=== PATIENT | male | born 1995 | race Caucasian/White ===

== ENCOUNTER → 2018-12-04 | Outpatient (CLI) | payer OTHER ==
[~2018-12-04] VITALS: Ht 172.7 cm; Wt 89.8 kg
[~2018-12-04] MED LIST: DIPH-121 PO; PSEU120T9 PO; SINCALIDE 1.8 MCG in IV NORMAL SALINE 50ML 30 ML IV ONE
--- NOTE | 2018-12-04 12:26 | RAD ---
HEPATOBILIARY SCAN WITH EJECTION FRACTION 12/04/2018 12:22 PM History: Right upper quadrant colicky pain Procedure: Serial static images are obtained of the liver and biliary system in the frontal projection following IV administration of 5.5 mCi of Technetium 99m Choletec. After filling of the gallbladder, 1.8 mcg of sincalide were infused over 30 minutes and dynamic imaging continued over this period. The gallbladder ejection fraction was calculated. Findings: There is prompt hepatic clearance of tracer from the blood pool. There is homogeneous distribution throughout the liver. The gallbladder ejection fraction measures 95 % (normal gallbladder EF is 35% or greater). IMPRESSION: 1. The cystic duct and common bile duct are patent. Negative for acute cholecystitis. 2. The gallbladder ejection fraction is normal Electronically signed by: Nitish Gama MD (12/04/2018 12:24 PM) [id number]
== END | disposition home or self-care (01) ==
LOC: NM 07:55
PROVIDERS: ATTEND Family Medicine
DX: R10.11 Right upper quadrant pain (principal)
CPT/HCPCS: 78227; A9537; J2805

== ENCOUNTER 2018-12-15 12:29 | Inpatient (IN) | payer OTHER ==
[~2018-12-15] VITALS: Ht 174 cm; Wt 88.2 kg
[~2018-12-15 12:29] MED LIST changes: -SINCALIDE 1.8 MCG in IV NORMAL SALINE 50ML 30 ML IV ONE
[2018-12-15 13:30] VITALS: BP 125/78
[2018-12-15] MEDS ORDERED: IV NORMAL SALINE 1000ML BAG 1,000 ML IV ONE (14:00)
[2018-12-15] MEDS ORDERED: IOHEXOL 240 MG/ML 50ML VIAL. PO ONE (14:45)
[2018-12-15] MEDS ORDERED: CONTRAST GIVEN. MC PRN (14:45)
[2018-12-15] MEDS ORDERED: IOHEXOL 300 MG/ML 100ML VIAL. IV ONE (14:45)
[2018-12-15] MEDS: KETOROLAC 30 MG/ML VIAL. IV PRN (14:46)
[2018-12-15] MEDS: ONDANSETRON PF 4 MG/2 ML VIAL. IV PRN (14:51)
[2018-12-15 15:00] VITALS: BP 120/79
[2018-12-15] MEDS: IV NORMAL SALINE 1000ML BAG 1,000 ML IV SCH (15:40)
[2018-12-15 15:41] LABS: BASO % 1 % (0-3); EOS % 1 % (0-3); HEMATOCRIT 41.2 % (39.0-53.0); HEMOGLOBIN 14.1 g/dL (13.0-17.5); LYMPH # 1.5 x10^3/uL (1.0-4.8); LYMPH % 24 % (24-48); MEAN CORPUSCULAR HEMOGLOBIN 31 pg (25-35); MEAN CORPUSCULAR HGB CONC 34 g/dL (31-37); MEAN CORPUSCULAR VOLUME 89 fL (79-100); MONO # 0.5 x10^3/uL (0.0-1.1); MONO % 8 % (0-9); NEUT % 67 % (31-73); PLATELET COUNT 232 x10^3/uL (140-400); RED BLOOD COUNT 4.61 x10^6/uL (4.30-5.70); RED CELL DISTRIBUTION WIDTH 13.2 % (11.5-14.5); WHITE BLOOD COUNT 5.9 x10^3/uL (4.0-11.0)
--- NOTE | 2018-12-15 15:54 | PDOC2 ---
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 Hall. 2 months of RUQ ("but really everywhere") pain (cramping), early satiety, and nausea. Tried acid-reducers (omeprazole x 1 month, then pantoprazole x 2 weeks) - might have helped at first but then not really. Also tried anti-anxiety med (Zoloft) and a different BP med - no help. Worse with spicy foods but fairly constant. Sometimes radiates to chest and back. [facility] [place] - reportedly normal. Also normal PIPIDA (GB EF 95%) earlier this month. Worse since Saturday w/ vomiting ("acid") - can't keep anything down. Also had diarrhea on Saturday but resolved after Imodium. Has lost 8.5 pounds in 2 weeks. No hematemesis, hematochezia, melena, dysphagia, chronic diarrhea, or constipation. Saw a GI doctor ~8 years ago for cramping - had CTs and was told to take fiber which he has continued. No previous EGD or colonoscopy. No liver, pancreas, or PUD history. PRN NSAID use. Girlfriend Mac present. PMH: PMH: HTN, anxiety, seasonal allergies, wrist fracture, ?IBS appendectomy, tonsillectomy, eye surgeries FH: Family History: No pertinent hx (no IBD history), Other (grandmother - GB disease) Social History: Smoke: No ALCOHOL: other (used to drink a couple beers w/ dinner during the week, then 8- 9 beers on weekend nights; now does not drink during the week and only drinks on weekends) Drugs: None ROS: GEN: Denies fevers, chills, sweats HEENT: Denies blurred vision, sore throat CV: Denies chest pain RESP: Denies shortness of air, cough GI: Per HPI : Denies hematuria, dysuria ENDO: +weight loss NEURO: Denies confusion, dizziness MSK: Denies weakness, joint pain/swelling SKIN: Denies jaundice, pruritus Vitals: Vitals: Please see EMR. Labs: Labs: Ordered per [facility]. Allergies: Coded Allergies: azithromycin (Verified Allergy, Unknown, 12/04/18) Medications: Current Medications Medications (Trade) Dose Ordered Sig/Nevaeh Route PRN Reason Start Time Stop Time Status Last Admin Dose Admin Sodium Chloride 1,000 ml @ 1,000 mls/hr 1X ONCE IV 12/15/18 14:00 12/15/18 14:59 DC 12/15/18 14:54 Ketorolac Tromethamine (Toradol 30mg Vial) 30 mg PRN Q6HRS PRN IV PAIN 12/15/18 14:00 12/20/18 13:59 12/15/18 14:54 Ondansetron HCl (Zofran) 4 mg PRN Q6HRS PRN IV NAUSEA/VOMITING 12/15/18 14:00 12/15/18 14:54 PE: GEN: NAD HEENT: Atraumatic, PERRL LUNGS: CTAB HEART: RRR ABD: NABS, S/ND - currently non-tender EXTREMITY: No edema SKIN: No rashes, no jaundice NEURO/PSYCH: A & O �3 A/P: A/P: Abd pain (mostly RUQ), n/v, early satiety, weight loss Diarrhea x 1 - resolved CRC screen - average risk -- Await pending labs and CT. Reviewed w/ Dr. Campbell - will tentatively plan for EGD tomorrow at 4:00 p.m. IV PPI for now. ISABELLA KRUSE Dec 15, 2018 15:54
[2018-12-15 16:00] LABS: ALBUMIN 3.6 g/dL (3.4-5.0); ALBUMIN/GLOBULIN RATIO 1.1 (1.0-1.7); CALCIUM 8.6 mg/dL (8.5-10.1); CREATININE 1.2 mg/dL (0.7-1.3); GFR 73.8; POTASSIUM 3.5 mmol/L (3.5-5.1); TOTAL BILIRUBIN 0.8 mg/dL (0.2-1.0); TOTAL PROTEIN 6.8 g/dL (6.4-8.2)
--- NOTE | 2018-12-15 16:04 | PDOC1 ---
H & P. HPI: Mr. Sorenson is a 23 year old male with PMH of HTN and anxiety who presented to clinic today for chronic abdominal pain that has worsened over the last few weeks. He was feeling better over the weekend and had BBQ for dinner on Saturday, then has had innumerable episodes of vomiting since yesterday morning. He has not been able to keep fluids down. He describes abdominal pain as persistent, diffuse, achy, associated with nausea, vomiting, bloating, early satiety. Denies diarrhea, hematochezia, and melena. Aggravated by any PO intake. Denies known alleviating factors. PPI hasn't been helpful. He has had an abdominal US and HIDA scan which were both unrevealing apart from fatty liver and borderline hepatosplenomegaly. He went to [facility] over the weekend and had no relief from Zofran. He has an outpt consult with GI scheduled already but not until 12/25 and pt�s symptoms have been worsening. ROS: Gen: Denies fever, chills, night sweats HEENT: Denies congestion, ear pain, sore throat Resp: Denies cough, shortness of breath Chest: Denies chest pain, syncope Abd: Admits nausea, vomiting, abdominal pain, bloating, early satiety; denies diarrhea, hematochezia and melena Skin: Denies rash Psych: Admits anxiety PMH: as above FAMILY HX: Noncontributory SOCIAL HX: Denies illicit drug use including MJ. Denies smoking, recent alcohol use. SURGICAL HX: s/p appendectomy, tonsillectomy, eye surgery MEDS: Reviewed and reconciled ALLERGIES: Reviewed PE: Alert, oriented, appears unwell RRR CTAB Abd soft, mildly tender throughout, BS diminished, no organomegaly appreciated, neg taylor's No edema Calm, cooperative ASSESSMENT & PLAN: Intractable nausea, vomiting and diffuse abdominal pain - unknown etiology HTN Anxiety Borderline hepatosplenomegaly per recent US, was reportedly similar in size to previous CT in 2010 NPO for now Await labs, CT Abd/pelvis, GI consult Can advance to clears pending the above Zofran or Phenergan for nausea PRN Toradol for pain PRN IV fluid bolus then 125mls/hour HUGO ESPOSITO MD Dec 15, 2018 16:04
[2018-12-15] MEDS: PANTOPRAZOLE IV PUSH 40 MG VIAL. IVP SCH (16:49)
--- NOTE | 2018-12-15 16:56 | RAD ---
Examination: CT ABD PELV W/ORAL IV CONTRAST History: Intractable nausea and vomiting. Abdominal pain Comparison/Correlation: 11/25/2014 CT abdomen and pelvis with contrast Findings: Axial images of the abdomen and pelvis were obtained following IV and oral contrast. Sagittal and coronal reformatted images were provided. Visualized lung bases are clear. Liver, spleen, pancreas, adrenal glands, and kidneys are normal. Gallbladder fossa is unremarkable. Appendix is unremarkable. Surgical clips are present anterior to the right psoas muscle within the pelvis. Nonenlarged mesenteric lymph nodes involving the abdomen and pelvis are present. There is no bowel obstruction or extraluminal gas. No inflammatory findings along the bowel. Small umbilical hernia contains omental fat. Urinary bladder is unremarkable. No ascites or pelvic free fluid. Bony structures are grossly unremarkable. Impression: No suspicious process. PQRS Compliance Statement: One or more of the following individualized dose reduction techniques were utilized for this examination: 1. Automated exposure control 2. Adjustment of the mA and/or kV according to patient size 3. Use of iterative reconstruction technique Electronically signed by: Oneal Duarte MD (12/15/2018 4:53 PM) [facility]
[2018-12-15 17:04] LABS: BILIRUBIN,URINE NEGATIVE (NEG); CLARITY,URINE CLEAR; COLOR,URINE YELLOW; NITRITE,URINE NEGATIVE (NEG); PROTEIN,URINE NEGATIVE (NEG-TRACE)
[2018-12-15 17:12] LABS: BACTERIA,URINE 0 /HPF (0-FEW); RBC,URINE 0 /HPF (0-2); SQUAMOUS EPITHELIAL CELL,UR FEW /LPF; WBC,URINE 0 /HPF (0-4)
[2018-12-15] MEDS ORDERED: LOSA-73 PO (17:53)
[2018-12-15] MEDS ORDERED: SERT50TA PO (17:53)
[2018-12-15] MEDS ORDERED: PANT40TA77 PO (17:53)
[2018-12-15] MEDS ORDERED: LORA10TA68 PO (17:53)
[2018-12-15 19:00] VITALS: BP 136/96
[2018-12-15] MEDS: PSEUDOEPHEDRINE ER 120 MG TABLET.ER. PO PRN (22:25)
[2018-12-15] MEDS: CETIRIZINE HCL 10 MG TABLET. PO SCH (22:25)
[2018-12-15] MEDS: LOSARTAN POTASSIUM 50 MG TABLET. PO SCH (22:25)
[2018-12-15] MEDS: SERTRALINE 50 MG TABLET. PO SCH (22:25)
[2018-12-15 23:00] VITALS: BP 143/84
[2018-12-16] VITALS (13 sets, daily range): BP systolic 100–136; BP diastolic 53–90
[2018-12-16] MEDS: IV NORMAL SALINE 1000ML BAG 1,000 ML IV SCH ×4 (00:15→21:53)
[2018-12-16 05:32] LABS: ALBUMIN 3.2 g/dL (3.4-5.0); ALBUMIN/GLOBULIN RATIO 1.1 (1.0-1.7); CALCIUM 8.5 mg/dL (8.5-10.1); CREATININE 0.9 mg/dL (0.7-1.3); GFR 102.8; POTASSIUM 3.8 mmol/L (3.5-5.1); TOTAL BILIRUBIN 0.7 mg/dL (0.2-1.0); TOTAL PROTEIN 6.2 g/dL (6.4-8.2)
[2018-12-16] MEDS: ONDANSETRON PF 4 MG/2 ML VIAL. IV PRN (06:35)
[2018-12-16] MEDS: PANTOPRAZOLE 40 MG TABLET.DR. PO SCH (07:30)
[2018-12-16] MEDS: PANTOPRAZOLE IV PUSH 40 MG VIAL. IVP SCH (07:42)
--- NOTE | 2018-12-16 08:06 | PDOC ---
SUBJECTIVE Subjective Nausea is better with adding compazine. Abd pain is 3/10 right now, generalized, achy. No other changes OBJECTIVE Objective Reviewed. Vital Signs Vital Signs Date Time Temp Pulse Resp B/P (MAP) Pulse Ox O2 Delivery O2 Flow Rate FiO2 12/16/18 07:00 97.8 63 18 108/63 (78) 98 Room Air 97.8 12/16/18 03:00 97.5 60 18 131/85 (100) 98 Room Air 97.5 12/15/18 23:00 97.9 81 18 143/84 (103) 99 Room Air 97.9 12/15/18 22:27 88 136/96 12/15/18 19:00 97.6 88 18 136/96 (109) 98 Room Air 97.6 12/15/18 15:00 98.0 58 18 120/79 (93) 99 Room Air 98.0 12/15/18 14:00 Room Air 12/15/18 13:30 98.4 54 18 125/78 (94) 96 Room Air 98.4 I & O Intake and Output 12/16/18 06:59 Intake Total 0 ml Balance 0 ml Intake Oral 0 ml # Voids 3 # Bowel Movements 1 PHYSICAL EXAM Physical Exam Alert, oriented, appears unwell RRR CTAB Abd soft, mildly tender throughout, BS diminished, no organomegaly appreciated, neg taylor's No edema Calm, cooperative ASSESSMENT/PLAN Assessment/Plan Intractable nausea, vomiting and diffuse abdominal pain - unknown etiology HTN Anxiety Labs/imaging largely unrevealing NPO for EGD this PM COMMENT Lab Laboratory Tests Test 12/15/18 15:34 12/15/18 17:00 12/16/18 04:45 White Blood Count 5.9 x10^3/uL (4.0-11.0) Red Blood Count 4.61 x10^6/uL (4.30-5.70) Hemoglobin 14.1 g/dL (13.0-17.5) Hematocrit 41.2 % (39.0-53.0) Mean Corpuscular Volume 89 fL (79-100) Mean Corpuscular Hemoglobin 31 pg (25-35) Mean Corpuscular Hemoglobin Concent 34 g/dL (31-37) Red Cell Distribution Width 13.2 % (11.5-14.5) Platelet Count 232 x10^3/uL (140-400) Neutrophils (%) (Auto) 67 % (31-73) Lymphocytes (%) (Auto) 24 % (24-48) Monocytes (%) (Auto) 8 % (0-9) Eosinophils (%) (Auto) 1 % (0-3) Basophils (%) (Auto) 1 % (0-3) Neutrophils # (Auto) 4.0 x10^3/uL (1.8-7.7) Lymphocytes # (Auto) 1.5 x10^3/uL (1.0-4.8) Monocytes # (Auto) 0.5 x10^3/uL (0.0-1.1) Eosinophils # (Auto) 0.0 x10^3/uL (0.0-0.7) Basophils # (Auto) 0.0 x10^3/uL (0.0-0.2) Sodium Level 142 mmol/L (136-145) 142 mmol/L (136-145) Potassium Level 3.5 mmol/L (3.5-5.1) 3.8 mmol/L (3.5-5.1) Chloride Level 109 mmol/L (98-107) 110 mmol/L (98-107) Carbon Dioxide Level 21 mmol/L (21-32) 21 mmol/L (21-32) Anion Gap 12 (6-14) 11 (6-14) Blood Urea Nitrogen 13 mg/dL (8-26) 8 mg/dL (8-26) Creatinine 1.2 mg/dL (0.7-1.3) 0.9 mg/dL (0.7-1.3) Estimated GFR (Cockcroft-Gault) 73.8 102.8 BUN/Creatinine Ratio 11 (6-20) 9 (6-20) Glucose Level 77 mg/dL (70-99) 80 mg/dL (70-99) Calcium Level 8.6 mg/dL (8.5-10.1) 8.5 mg/dL (8.5-10.1) Total Bilirubin 0.8 mg/dL (0.2-1.0) 0.7 mg/dL (0.2-1.0) Aspartate Amino Transf (AST/SGOT) 12 U/L (15-37) 9 U/L (15-37) Alanine Aminotransferase (ALT/SGPT) 23 U/L (16-63) 18 U/L (16-63) Alkaline Phosphatase 49 U/L (46-116) 42 U/L (46-116) Total Protein 6.8 g/dL (6.4-8.2) 6.2 g/dL (6.4-8.2) Albumin 3.6 g/dL (3.4-5.0) 3.2 g/dL (3.4-5.0) Albumin/Globulin Ratio 1.1 (1.0-1.7) 1.1 (1.0-1.7) Lipase 139 U/L (73-393) 102 U/L (73-393) Thyroid Stimulating Hormone (TSH) 0.321 uIU/mL (0.358-3.74) Urine Collection Type Unknown Urine Color Yellow Urine Clarity Clear Urine pH 6.0 Urine Specific [place] >=1.030 Urine Protein Negative mg/dL (NEG-TRACE) Urine Glucose (UA) Negative mg/dL (NEG) Urine Ketones (Stick) 40 mg/dL (NEG) Urine Blood Negative (NEG) Urine Nitrite Negative (NEG) Urine Bilirubin Negative (NEG) Urine Urobilinogen Dipstick 2.0 mg/dL (0.2 mg/dL) Urine Leukocyte Esterase Negative (NEG) Urine RBC 0 /HPF (0-2) Urine WBC 0 /HPF (0-4) Urine Squamous Epithelial Cells Few /LPF Urine Bacteria 0 /HPF (0-FEW) Urine Mucus Marked /LPF Amylase Level 37 U/L (25-115) HUGO ESPOSITO MD Dec 16, 2018 08:06
[2018-12-16] MEDS: PROCHLORPERAZINE 10 MG/2 ML VIAL. IV PRN (08:11)
[2018-12-16] MEDS: KETOROLAC 30 MG/ML VIAL. IV PRN (09:55)
[2018-12-16] MEDS ORDERED: fentaNYL PF VIAL 100 MCG/2 ML VIAL IV PRN (10:45)
[2018-12-16] MEDS ORDERED: PROMETHAZINE 25 MG SUPP.RECT. PR PRN (10:45)
[2018-12-16] MEDS ORDERED: diphenhydrAMINE 50 MG/ML VIAL ONE (15:00)
[2018-12-16] MEDS ORDERED: fentaNYL PF VIAL 100 MCG/2 ML VIAL ONE (15:00)
[2018-12-16] MEDS ORDERED: MIDAZOLAM HCL/PF 5 MG/5 ML VIAL. ONE (15:00)
--- NOTE | 2018-12-16 15:22 | PDOC4 ---
Operative Note Operative Note EGD Meds Versed 4 mg/Benadryl 50 mg/Fentanyl 100 mcg IV Pre-op n/v, abd pain Post- op dx non-erosive gastritis Plan Gastric emptying study repeat fasting cortisol in am YEE FOOTE MD Dec 16, 2018 15:22
[2018-12-16] MEDS: CETIRIZINE HCL 10 MG TABLET. PO SCH (22:03)
[2018-12-16] MEDS: LOSARTAN POTASSIUM 50 MG TABLET. PO SCH (22:04)
[2018-12-16] MEDS: SERTRALINE 50 MG TABLET. PO SCH (22:04)
[2018-12-16] MEDS: PSEUDOEPHEDRINE ER 120 MG TABLET.ER. PO PRN (22:04)
[2018-12-17] MEDS: IV NORMAL SALINE 1000ML BAG 1,000 ML IV SCH ×3 (02:16→21:53)
[2018-12-17 03:00] VITALS: BP 131/80
[2018-12-17 07:00] VITALS: BP 130/84
[2018-12-17] MEDS: PROCHLORPERAZINE 10 MG/2 ML VIAL. IV PRN (07:23)
--- NOTE | 2018-12-17 08:12 | PDOC ---
SUBJECTIVE Subjective Was able to keep down food last night, but had more pain before bed and more nausea this AM. Currently doing gastric emptying study. Also notes significant post-nasal drip, previously failed flonase, patanase and nasonex. Also taking claritin and pseudophed daily. OBJECTIVE Objective Reviewed. Vital Signs Vital Signs Date Time Temp Pulse Resp B/P (MAP) Pulse Ox O2 Delivery O2 Flow Rate FiO2 12/17/18 07:00 97.9 68 17 130/84 (99) 98 Room Air 97.9 12/17/18 03:00 97.9 61 18 131/80 (97) 97 Room Air 97.9 12/16/18 23:00 98.2 64 18 129/90 (103) 98 Room Air 98.2 12/16/18 22:04 76 136/88 12/16/18 20:00 98.8 76 18 136/88 (104) 98 Room Air 98.8 12/16/18 19:00 81 117/64 (81) 94 Room Air 12/16/18 18:00 75 114/60 (78) 97 Room Air 12/16/18 17:30 64 115/78 (90) 95 Room Air 12/16/18 17:00 54 116/78 (91) 96 Room Air 12/16/18 16:45 62 120/78 (92) 95 Room Air 12/16/18 16:36 97.7 97.7 12/16/18 16:30 52 122/79 (93) 95 Room Air 12/16/18 16:15 59 128/72 (90) 95 Room Air 12/16/18 16:00 97.8 60 18 124/75 (91) 96 Room Air 97.8 12/16/18 16:00 60 124/75 (91) Room Air 12/16/18 15:40 61 20 136/78 96 Room Air 12/16/18 15:34 53 20 121/62 94 Room Air 12/16/18 15:17 98.0 78 20 132/73 96 Nasal Cannula 5 98.0 12/16/18 15:14 78 20 96 Nasal Cannula 5 12/16/18 15:10 80 24 96 Nasal Cannula 5 12/16/18 15:05 78 20 96 Nasal Cannula 2 12/16/18 15:03 80 20 96 Nasal Cannula 3 12/16/18 14:27 98.0 57 20 98 98.0 12/16/18 14:25 Room Air 12/16/18 11:00 98.4 66 16 100/53 (69) 99 Room Air 98.4 I & O Intake and Output 12/17/18 06:59 Intake Total 240 ml Balance 240 ml Intake Oral 240 ml # Voids 3 PHYSICAL EXAM Physical Exam Alert, oriented, appears uncomfortable RRR CTAB Abd soft, mildly tender throughout, BS diminished No edema Calm, cooperative ASSESSMENT/PLAN Assessment/Plan Intractable nausea, vomiting and diffuse abdominal pain - unknown etiology HTN Anxiety Subclinical hyperthyroidism, no clinical symptoms Postnasal drip Labs/imaging largely unrevealing EGD showed nonerosive gastritis Plan for gastric emptying study today Will recheck TSH/FT4 in 3 months to follow Trial azelastine for PND, consider E[place] if no improvement. HUGO ESPOSITO MD Dec 17, 2018 08:11
--- NOTE | 2018-12-17 09:10 | PDOC ---
Subjective: Subjective: Parents and girlfriend present - ask about Cortisol results and the plan after GES. Also wondering if this could be gastroenteritis. Kept oatmeal down (mom says can't do eggs or dairy) for first part of GES, and last night ate a burger, chicken soup, and crackers. Had some pain around 11:00-midnight w/ nausea. Father says typical pattern is to wake up and feel terrible w/ vomiting, then gradually improves throughout the day. Had a bowel movement yesterday. Objective: Vital Signs: Vital Signs Date Time Temp Pulse Resp B/P (MAP) Pulse Ox O2 Delivery O2 Flow Rate FiO2 12/17/18 07:00 97.9 68 17 130/84 (99) 98 Room Air 97.9 12/16/18 15:17 5 Imaging: CT A/P 12/15 Impression: No suspicious process. EGD 12/16 non-erosive gastritis PE: GEN: NAD - parents, girlfriend, and Dr. Hall present NEURO/PSYCH: sleeping - not awakened A/P: N/v, abd pain - GB testing, CT, and EGD unrevealing Borderline low Cortisol -- Has been able to eat some while inpt but has still had some abd pain and nausea. Await recheck of Cortisol and GES. Continue PPI. ISABELLA KRUSE Dec 17, 2018 09:10
[2018-12-17] MEDS: ONDANSETRON PF 4 MG/2 ML VIAL. IV PRN (10:36)
[2018-12-17 11:00] VITALS: BP 124/71
--- NOTE | 2018-12-17 12:09 | RAD ---
Examination: GASTRIC EMPTYING STUDY History: Nausea, vomiting, abdominal pain Comparison/Correlation: 12/15/2018 CT Abd and Pelvis with contrast Findings: A total 2 mCi technetium 99m sulfur colloid meal was utilized for gastric emptying examination. Imaging was performed in anterior and posterior projections. At one hour, 2 hours, 3 hours, only 4 percent retention of radiotracer is seen. At 4 hours, 1 percent of radiotracer retention is seen. The T1/2 is 35 minutes. Normal transit of tracer through the small bowel is noted. Impression: Accelerated gastric emptying is identified. No delay in gastric emptying. Electronically signed by: Oneal Duarte MD (12/17/2018 12:06 PM) [facility]
[2018-12-17] MEDS: PANTOPRAZOLE 40 MG TABLET.DR. PO SCH (12:26)
[2018-12-17] MEDS: AZELASTINE NASAL SPRAY 30ML BOTTLE. NS SCH ×2 (12:27→21:24)
--- NOTE | 2018-12-17 14:51 | RAD ---
CT HEAD WITHOUT CONTRAST 12/17/2018 1:55 PM Indication: Headache, nausea, vomiting Comparison: None Procedure: Multidetector CT imaging of the head was performed without the administration of contrast. Findings: There is no evidence of acute intracranial hemorrhage. There is no evidence of acute territorial infarction. Please note that CT is limited for evaluation of acute ischemia. No mass effect or midline shift is identified . The ventricles and basilar cisterns have an appropriate appearance. No abnormal extra-axial fluid collections are seen. No acute osseous changes are identified. Impression: No evidence of acute intracranial abnormality CT DOSING PQRS STATEMENT: One or more of the following individualized dose reduction techniques were utilized for this examination: 1. Automated exposure control 2. Adjustment of the mA and/or kV according to patient size 3. Use of iterative reconstruction technique Electronically signed by: Nitish Gama MD (12/17/2018 2:48 PM) [id number]
[2018-12-17 15:00] VITALS: BP 125/86
--- NOTE | 2018-12-17 15:57 | PDOC2 ---
CONSULT Date of Consult Date of Consult DATE: 12/17/18 TIME: 15:43 Reason for Consult Reason for Consult: n/V Referring Physician Referring Physician: Dr. Campbell Identification/Chief Complaint Chief Complaint N/V Source Source: Chart review, Patient History of Present Illness Reason for Visit: 23 yo M with long standing GI issues. Notes not being able to eat in the morning and has been having increased issues with emesis in the morning, despite not eating. Has been noting RUQ pain over the past month and half. Extensive w/u is ongoing. Past Medical History Cardiovascular: HTN Pulmonary: Other (allergies) Past Surgical History Past Surgical History: Appendectomy, Tonsillectomy, Other (eye surgery) Family History Family History: No Significant Social History No ALCOHOL: other (used to drink a couple beers w/ dinner during the week, then 8- 9 beers on weekend nights; now does not drink during the week and only drinks on weekends) Drugs: None Current Problem List Problem List Problems Medical Problems: (1) Abdominal pain, diffuse Status: Acute (2) HTN (hypertension) Status: Chronic (3) Intractable nausea and vomiting Status: Acute Current Medications Current Medications Current Medications Sodium Chloride 1,000 ml @ 125 mls/hr Q8H IV Last administered on 12/17/18at 02:17; Start 12/15/18 at 13:53 Sodium Chloride 1,000 ml @ 1,000 mls/hr 1X ONCE IV Last administered on 12/15/18at 14:54; Start 12/15/18 at 14:00; Stop 12/15/18 at 14:59; Status DC Ketorolac Tromethamine (Toradol 30mg Vial) 30 mg PRN Q6HRS PRN IV PAIN Last administered on 12/16/18at 09:55; Start 12/15/18 at 14:00; Stop 12/20/18 at 13:59 Ondansetron HCl (Zofran) 4 mg PRN Q6HRS PRN IV NAUSEA/VOMITING 1ST CHOICE Last administered on 12/17/18at 10:36; Start 12/15/18 at 14:00 Iohexol (Omnipaque 300 Mg/ml) 75 ml 1X ONCE IV Last administered on 12/15/18at 16:29; Start 12/15/18 at 14:45; Stop 12/15/18 at 14:46; Status DC Iohexol (Omnipaque 240 Mg/ml) 30 ml 1X ONCE PO Last administered on 12/15/18at 16:29; Start 12/15/18 at 14:45; Stop 12/15/18 at 14:46; Status DC Info (CONTRAST GIVEN -- Rx MONITORING) 1 each PRN DAILY PRN MC SEE COMMENTS; Start 12/15/18 at 14:45; Stop 12/17/18 at 14:44; Status DC Pantoprazole Sodium (PROTONIX VIAL for IV PUSH) 40 mg BIDAC IVP Last administered on 12/16/18at 07:42; Start 12/15/18 at 16:30; Stop 12/16/18 at 13:04; Status DC Losartan Potassium (Cozaar) 50 mg QHS PO Last administered on 12/16/18at 22:04; Start 12/15/18 at 21:15 Pantoprazole Sodium (Protonix) 40 mg DAILYAC PO Last administered on 12/17/18at 12:26; Start 12/16/18 at 07:30 Pseudoephedrine HCl (Sudafed 12-Hour) 120 mg PRN BID PRN PO CONGESTION Last administered on 12/16/18at 22:04; Start 12/15/18 at 21:15 Sertraline HCl (Zoloft) 50 mg QHS PO Last administered on 12/16/18at 22:04; Start 12/15/18 at 21:15 Cetirizine HCl (ZyrTEC) 10 mg QHS PO Last administered on 12/16/18at 22:04; Start 12/15/18 at 21:15 Prochlorperazine Edisylate (Compazine) 5 mg PRN Q6HRS PRN IV NAUSEA/VOMITING 2ND CHOICE Last administered on 12/17/18at 07:23; Start 12/16/18 at 08:00 Fentanyl Citrate (Fentanyl 2ml Vial) 50 mcg PRN Q2HR PRN IV PAIN; Start 12/16/18 at 10:45 Promethazine HCl (Phenergan Supp) 25 mg PRN Q6HRS PRN CT NAUSEA/VOMITING; Start 12/16/18 at 10:45 Midazolam HCl (Versed) 5 mg STK-MED ONCE .ROUTE ; Start 12/16/18 at 15:00; Stop 12/16/18 at 15:00; Status DC Fentanyl Citrate (Fentanyl 2ml Vial) 100 mcg STK-MED ONCE .ROUTE ; Start 9 at 15:00; Stop 12/16/18 at 15:00; Status DC Diphenhydramine HCl (Benadryl) 50 mg STK-MED ONCE .ROUTE ; Start 12/16/18 at 15:00; Stop 12/16/18 at 15:00; Status DC Azelastine HCl (Astelin) 2 spray BID NS Last administered on 12/17/18at 12:27; Start 12/17/18 at 11:00 Active Scripts Active Reported Claritin (Loratadine) 10 Mg Tablet 1 Tab PO QHS Zoloft (Sertraline Hcl) 50 Mg Tablet 1 Tab PO QHS Pantoprazole Sodium (Pantoprazole Sodium) 40 Mg Tablet.dr 40 Mg PO DAILYAC Losartan Potassium 50 Mg Tablet 50 Mg PO QHS Sudafed 12-Hour (Pseudoephedrine Hcl) 120 Mg Tablet.er 1 Tab PO PRN BID PRN Benadryl Allergy (Diphenhydramine Hcl) 12.5 Mg/5 Ml Liquid 5 Ml PO PRN Q6-8HRS Allergies Allergies: Coded Allergies: azithromycin (Verified Allergy, Unknown, 12/16/18) ROS Gastrointestinal: Yes Nausea, Yes Vomiting, Yes Abdominal Pain Physical Exam General: Alert, Oriented X3, Cooperative, No acute distress HEENT: Atraumatic, EOMI Lungs: Normal air movement Abdomen: Soft, Other (TTP RUQ) Extremities: No clubbing, No cyanosis Skin: No rashes, No breakdown Neuro: Normal speech, Sensation intact Psych/Mental Status: Mental status NL, Mood NL Vitals VITALS Vital Signs Date Time Temp Pulse Resp B/P (MAP) Pulse Ox O2 Delivery O2 Flow Rate FiO2 12/17/18 11:00 98.1 70 17 124/71 (88) 98 Room Air 98.1 12/16/18 15:17 5 Labs Labs Laboratory Tests Test 12/15/18 17:00 12/16/18 04:45 12/17/18 03:35 Urine Collection Type Unknown Urine Color Yellow Urine Clarity Clear Urine pH 6.0 Urine Specific [place] >=1.030 Urine Protein Negative mg/dL (NEG-TRACE) Urine Glucose (UA) Negative mg/dL (NEG) Urine Ketones (Stick) 40 mg/dL (NEG) Urine Blood Negative (NEG) Urine Nitrite Negative (NEG) Urine Bilirubin Negative (NEG) Urine Urobilinogen Dipstick 2.0 mg/dL (0.2 mg/dL) Urine Leukocyte Esterase Negative (NEG) Urine RBC 0 /HPF (0-2) Urine WBC 0 /HPF (0-4) Urine Squamous Epithelial Cells Few /LPF Urine Bacteria 0 /HPF (0-FEW) Urine Mucus Marked /LPF Sodium Level 142 mmol/L (136-145) Potassium Level 3.8 mmol/L (3.5-5.1) Chloride Level 110 mmol/L (98-107) Carbon Dioxide Level 21 mmol/L (21-32) Anion Gap 11 (6-14) Blood Urea Nitrogen 8 mg/dL (8-26) Creatinine 0.9 mg/dL (0.7-1.3) Estimated GFR (Cockcroft-Gault) 102.8 BUN/Creatinine Ratio 9 (6-20) Glucose Level 80 mg/dL (70-99) Calcium Level 8.5 mg/dL (8.5-10.1) Total Bilirubin 0.7 mg/dL (0.2-1.0) Aspartate Amino Transf (AST/SGOT) 9 U/L (15-37) Alanine Aminotransferase (ALT/SGPT) 18 U/L (16-63) Alkaline Phosphatase 42 U/L (46-116) Total Protein 6.2 g/dL (6.4-8.2) Albumin 3.2 g/dL (3.4-5.0) Albumin/Globulin Ratio 1.1 (1.0-1.7) Amylase Level 37 U/L (25-115) Lipase 102 U/L (73-393) Free Thyroxine 1.22 ng/dL (0.76-1.46) Cortisol AM Sample 4.3 ug/dL (4.3-22.4) 4.5 ug/dL (4.3-22.4) Laboratory Tests Test 12/17/18 03:35 Cortisol AM Sample 4.5 ug/dL (4.3-22.4) Images Images CT head, abd/pelvis wnl, GES somewhat elevated Assessment/Plan Assessment/Plan N/V, abd pain extensively d/w pt and pt's supportive family. Agree with continued w/u per GI. Pt may benefit from laparoscopic exploration to include cholecystectomy with cholangiogram. R/R/B/A d/w pt and pt's family. Thanks for consult! SHIELA CARLOS MD Dec 17, 2018 15:57
[2018-12-17 19:00] VITALS: BP 125/88
[2018-12-17] MEDS: SERTRALINE 50 MG TABLET. PO SCH (21:23)
[2018-12-17] MEDS: CETIRIZINE HCL 10 MG TABLET. PO SCH (21:23)
[2018-12-17] MEDS: LOSARTAN POTASSIUM 50 MG TABLET. PO SCH (21:24)
[2018-12-17] MEDS: PSEUDOEPHEDRINE ER 120 MG TABLET.ER. PO PRN (21:24)
[2018-12-17 23:00] VITALS: BP 127/68
[2018-12-18 03:00] VITALS: BP 120/74
[2018-12-18] MEDS: IV NORMAL SALINE 1000ML BAG 1,000 ML IV SCH ×2 (05:53→13:53)
[2018-12-18 07:00] VITALS: BP 123/61
[2018-12-18] MEDS: PANTOPRAZOLE 40 MG TABLET.DR. PO SCH (08:21)
[2018-12-18] MEDS: AZELASTINE NASAL SPRAY 30ML BOTTLE. NS SCH (08:22)
--- NOTE | 2018-12-18 09:05 | PDOC ---
SUBJECTIVE Subjective Still having pain and nausea, although they seem somewhat improved this morning. Patient and parents are reluctant to go home and have another flare of pain with no obvious diagnosis. Interested in possible exlap. OBJECTIVE Objective Reviewed. Vital Signs Vital Signs Date Time Temp Pulse Resp B/P (MAP) Pulse Ox O2 Delivery O2 Flow Rate FiO2 12/18/18 07:00 98.2 64 20 123/61 (81) 97 Room Air 98.2 12/18/18 03:00 98.1 59 20 120/74 (89) 97 Room Air 98.1 12/17/18 23:00 98.2 56 20 127/68 (87) 97 Room Air 98.2 12/17/18 21:24 76 125/88 12/17/18 19:00 98.4 76 20 125/88 (100) 99 Room Air 98.4 12/17/18 15:00 97.6 65 7 125/86 (99) 97 Room Air 97.6 12/17/18 11:00 98.1 70 17 124/71 (88) 98 Room Air 98.1 I & O Intake and Output 12/18/18 07:00 Intake Total 1100 ml Balance 1100 ml Intake Oral 1100 ml # Voids 7 PHYSICAL EXAM Physical Exam Alert, oriented, appears uncomfortable RRR CTAB Abd soft, mildly tender throughout, BS diminished No edema Calm, cooperative ASSESSMENT/PLAN Assessment/Plan Intractable nausea, vomiting and diffuse abdominal pain - unknown etiology HTN Anxiety Subclinical hyperthyroidism, no clinical symptoms Postnasal drip Labs/imaging largely unrevealing EGD showed nonerosive gastritis Normal gastric emptying study Normal cortisol Normal CT head Will recheck TSH/FT4 in 3 months to follow Discussed that only other thing to potentially consider would be to rule out acute intermittent porphyria (though certainly rare). Patient and family are interested in exlap. HUGO ESPOSITO MD Dec 18, 2018 09:05
[2018-12-18 11:00] VITALS: BP 138/76
--- NOTE | 2018-12-18 12:50 | PDOC ---
MADDI CASTRO APRN 12/18/18 1250: SURGICAL PROGRESS NOTE Subjective currently no pain or nausea asking about possible surgery, many questions, awaiting Propecks opinion wants to go home today and return for surgery Vital Signs Vital Signs Date Time Temp Pulse Resp B/P (MAP) Pulse Ox O2 Delivery O2 Flow Rate FiO2 12/18/18 11:00 97.6 57 18 138/76 (96) 98 Room Air 97.6 I&O Intake and Output 12/18/18 07:00 Intake Total 1100 ml Balance 1100 ml Intake Oral 1100 ml # Voids 7 General: Alert, Cooperative Abdomen: Soft, No tenderness Labs Laboratory Tests Test 12/17/18 03:35 Cortisol AM Sample 4.5 ug/dL (4.3-22.4) Problem List Problems Medical Problems: (1) Abdominal pain, diffuse Status: Acute (2) HTN (hypertension) Status: Chronic (3) Intractable nausea and vomiting Status: Acute Assessment/Plan will discuss with GI SHARRI ROD MD 12/18/18 1316: SURGICAL PROGRESS NOTE Assessment/Plan as above will follow up after GI sees re: recs and timing MADDI CASTRO APRN Dec 18, 2018 12:50 SHARRI ROD MD Dec 18, 2018 13:16
--- NOTE | 2018-12-18 12:57 | PDOC ---
Subjective: Subjective: Had some nausea and abd pain this morning that resolved. Has not eaten today in case of surgery. He and parents have many questions - would like Dr. Campbell's specific recommendations re: cholecystectomy. Doesn't want gallbladder removed if looks normal during xlap - they have questions including "if the small bowel looks abnormal will the gallbladder be removed anyway?" They would like to know a percentage of people who feel better after cholecystectomy if pre-op testing is normal. Dad says they waited until 7:30 last night to discuss testing results and no one came in. They saw Dr. Segal yesterday afternoon. Objective: Objective: Called by nurse per pt request to come see pt/family because they've been waiting. D/w Josefina - pt would like Dr. Campbell's opinion, then to possible discharge and go to work tonight, and then possibly return for surgery tomorrow. Note orders for 23 urine porphyrin collection. Vital Signs: Vital Signs Date Time Temp Pulse Resp B/P (MAP) Pulse Ox O2 Delivery O2 Flow Rate FiO2 12/18/18 11:00 97.6 57 18 138/76 (96) 98 Room Air 97.6 PE: GEN: NAD - laying in bed, looks comfortable LUNGS: room air NEURO/PSYCH: A & O �3 A/P: N/v, abd pain - GB testing, CT A/P, CT head, EGD, and labs including Cortisol unrevealing -- I will discuss w/ Dr. Campbell, return to talk with patient/family, and also d/angela Rocha. ISABELLA KRUSE Dec 18, 2018 12:56
[2018-12-18 14:59] VITALS: BP 125/95
[2018-12-18] MEDS ORDERED: GADOTERATE 7.5 MMOL/15ML VIAL. IVP ONE (17:00)
--- NOTE | 2018-12-19 08:12 | PDOC3 ---
Discharge Summary Date of Admission: Dec 15, 2018 Date of Discharge: Dec 18, 2018 Follow-Up: 3-5 days Admitting Diagnosis comment: Intractable abdominal pain, nausea, vomiting FINAL DIAGNOSIS Abdominal pain, improved Intractable nausea and vomiting, improved Brief Hospital Course Mr. Sorenson is a 23 year old with PMH of HTN and anxiety who was directly admitted from clinic for chronic abdominal pain over the last 2 months that has worsened over the last few weeks prior to admission. He described abdominal pain as persistent, diffuse, achy, associated with nausea, vomiting, bloating, early satiety. Denied diarrhea, hematochezia, and melena. Aggravated by any PO intake. Denied known alleviating factors. PPI wasn't helpful prior to admission. He had an abdominal US and HIDA scan prior to admission which were both unrevealing apart from fatty liver and borderline hepatosplenomegaly. CT abdomen and pelvis, labs, EGD, gastric emptying study for all generally unremarkable apart from the mild nonerosive gastritis on EGD. An MRA was performed in hope to rule out Flaherty syndrome, the read is still pending at this time. Patient was also started on a 24-hour urine collection to rule out acute intermittent porphyria, she will continue the collection at home and return with the sample for testing. Another consideration for possible etiology could be Sphincter of Oddi dysfunction, though he has not had any typical elevation in liver enzymes or lipase. After thorough discussion of possible differential diagnosis for etiology of his pain, and the great number of possible diagnoses that had been ruled out, general surgery was consulted to discuss possible ex-lap and cholecystectomy. He had some improvement in pain during admission and elected to be discharged with plan to get a consult with GI at for second opinion and if no other cause is found, then to consider proceeding with exploratory laparoscopy and cholecystectomy at that time. He was discharged with Zofran and a small supply of [place] for severe pain. He will follow up in our clinic in approximately 1 week. No other home medication changes have been made. CONDITION AT DISCHARGE: Improved, Stable Discharge Medications Reported Claritin (Loratadine) 10 Mg Tablet 1 Tab PO QHS Zoloft (Sertraline Hcl) 50 Mg Tablet 1 Tab PO QHS Pantoprazole Sodium (Pantoprazole Sodium) 40 Mg Tablet.dr 40 Mg PO DAILYAC Losartan Potassium 50 Mg Tablet 50 Mg PO QHS Sudafed 12-Hour (Pseudoephedrine Hcl) 120 Mg Tablet.er 1 Tab PO PRN BID PRN Benadryl Allergy (Diphenhydramine Hcl) 12.5 Mg/5 Ml Liquid 5 Ml PO PRN Q6-8HRS Vital Signs Vital Signs Date Time Temp Pulse Resp B/P (MAP) Pulse Ox O2 Delivery O2 Flow Rate FiO2 12/18/18 14:59 97.8 85 18 125/95 (105) 99 Room Air 97.8 Allergies Allergies Coded Allergies Type Severity Reaction Last Updated Verified azithromycin Allergy Intermediate 12/18/18 Yes Disposition/Orders: D/C to Home HUGO ESPOSITO MD Dec 19, 2018 08:12
--- NOTE | 2018-12-19 13:50 | RAD ---
Examination: ANGIOGRAPHY ABDOMEN WO/W History: Nausea and vomiting Comparison/Correlation: CT abdomen and pelvis with contrast 12/14/2018 Findings: MRA of the abdomen was obtained following IV contrast. Sagittal and coronal reformatted images were provided. 3-D volume rendered MIP images were provided. Motion limits evaluation. Abdominal aortic diameter is normal. Common iliac arteries are unremarkable. Symmetric perfusion of the kidneys noted. There are 3 right renal arteries and a single left renal artery noted. Superior mesenteric artery is unremarkable. Celiac artery origin is not optimally assessed due to artifact. Inferior mesenteric artery is unremarkable. Adrenal glands are unremarkable. No enlarged upper abdominal lymph nodes. No upper abdominal ascites. Gallbladder is unremarkable. Liver and spleen are not fully imaged for purposes of this exam and are unremarkable. Kidneys are unremarkable. Impression: The celiac artery at its origin and proximal extent is not optimally assessed due to artifact. Further evaluation with CTA of the abdomen is recommended for more definitive assessment. Electronically signed by: Oneal Duarte MD (12/19/2018 1:47 PM) [facility]
== END 2018-12-18 19:28 | disposition home or self-care (01) | DRG 392 ==
LOC: 5 SOUTH 12:54
PROVIDERS: ADMIT Family Medicine; ATTEND Family Medicine
PROC: 0DJ08ZZ Inspection of Upper Intestinal Tract, Via Natural or Artificial Opening Endoscopic (ICD-10-PCS; principal; 2018-12-16 15:00)
DX: K29.70 Gastritis, unspecified, without bleeding (principal); E05.90 Thyrotoxicosis, unspecified without thyrotoxic crisis or storm; G89.29 Other chronic pain; R09.82 Postnasal drip; I10 Essential (primary) hypertension; F41.9 Anxiety disorder, unspecified; R16.2 Hepatomegaly with splenomegaly, not elsewhere classified; K76.0 Fatty (change of) liver, not elsewhere classified; Z90.49 Acquired absence of other specified parts of digestive tract
CPT/HCPCS: 36415; 43239; 70450; 74177; 74185; 78264; 80053; 81001; 82150; 82533; 83690; 84436; 84439; 84443; 85025; A9541; A9575; C9113; J0780; J1200; J1885; J2250; J2405; J3010; J7030; Q9966; Q9967; G0378

== ENCOUNTER → 2018-12-21 | Outpatient (CLI) | payer OTHER ==
[2018-12-18 14:59] VITALS: BP 125/95
[~2018-12-21] MED LIST changes: +LORA10TA68 PO; +LOSA-73 PO; +PANT40TA77 PO; +SERT50TA PO
[2018-12-25 10:16] LABS: COPORPHYRIN 18 ug/L (Undefined); HEPATACARBOXYLPORPH 2 ug/L (Undefined); HEXCARBOXYLPORPHYRIN <1 ug/L (Undefined); PENTACARBOXYLPORPH <1 ug/L (Undefined); UROPORPHYRIN 5 ug/L (Undefined)
== END | disposition home or self-care (01) ==
LOC: LAB 11:59
PROVIDERS: ATTEND Family Medicine
DX: Z96.651 Presence of right artificial knee joint (principal)
CPT/HCPCS: 84120

== ENCOUNTER → 2019-10-21 | Outpatient (CLI) | payer OTHER ==
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
== END | disposition home or self-care (01) ==
LOC: KCIC MRI 12:31
PROVIDERS: ATTEND Family Medicine
DX: M50.123 Cervical disc disorder at C6-C7 level with radiculopathy (principal); V86.55XS Driver of 3- or 4- wheeled all-terrain vehicle (ATV) injured in nontraffic accident, sequela
CPT/HCPCS: 72141; 72146